=== PATIENT | male | born 1980 | race Caucasian/White ===

== ENCOUNTER 2016-09-29 01:09 | Inpatient (IN) | payer OTHER ==
[~2016-09-29] VITALS: Ht 167.6 cm; Wt 83.9 kg
--- NOTE | ~2016-09-29 | S ---
[facility] [place] [address] SURGICAL PATH RPT PROCEDURE Name: JOSIE BRITT Room #: 533-P ADM IN M.R.#: [id number] Admission: 09/29/16 Date of : 78 Discharge: Report #: [id number] Path Case #: [id number] PATHOLOGY REPORT COLLECTION DATE: 10/01/2016 RECEIVED DATE: 10/01/2016 SUBMITTING PHYS: Dr. Tyree Mckeon OTHER PHYS: Dr. Flip Charlton SPECIMEN(S) RECEIVED: A.Incarcerated hernia contents * * * * * * * * * * * * FINAL DIAGNOSIS: Incarcerated hernia contents: - Mature adipose tissue along with congested vessels. (IUV:csd; d/t: 10/03/2016) PATHOLOGIST: Yana Fletcher M.D. REPORT ELECTRONICALLY SIGNED BY: Yana Fletcher M.D. DATE/TIME: 10/03/2016 16:08 * * * * * * * * * * * * GROSS PATHOLOGY: Received in formalin labeled "Josie Britt, incarcerated hernia contents," is a piece of fibroadipose tissue measuring 7.7 x 5.8 x 2.9 cm with attached mesh measuring 6.0 x 5.7 x 0.1 cm. No nodules or lesions are identified. Block Tester tissue is submitted in cassette A1. A gross photograph is taken. (CAA; 10/02/2016) CLINICAL HISTORY: Ventral hernia INITIAL CPT CODE(S): A; 57458 Professional services performed by [facility] at [facility] [address] [place] [address] Technical services performed by [facility] at [address] [place] [id number]. [facility] [address] [place] [address] SURGICAL PATH RPT PROCEDURE Name: JOSIE BRITT Room #: 533-P ADM IN M.R.#: [id number] Admission: 09/29/16 Date of : 78 Discharge: Report #: [id number] Path Case #: [id number] [facility] [id number] [address] PHONE: [phone] DIRECTOR: Andrew Rodgers M.D. * * * END OF REPORT * * *
--- NOTE | ~2016-09-29 | O ---
[facility] [place] [address] OPERATIVE REPORT Name: JOSIE BRITT Room #: 533-P ADM IN M.R.#: [id number] Admission: 09/29/16 Attend Phys: Zoltan Castelan MD Discharge: Date of : 78 Report #: [id number] THIS REPORT FOR: //name// CC: MELISSA physician/PCP Zoltan Castelan DATE OF SERVICE: 10/01/2016 PREOPERATIVE DIAGNOSES: 1. Incarcerated recurrent incisional ventral hernia. 2. Suspected intra-abdominal adhesions. POSTOPERATIVE DIAGNOSES: 1. Incarcerated recurrent incisional ventral hernia with indwelling mesh. 2. Dense intraabdominal adhesions. PROCEDURES PERFORMED: 1. Laparoscopic repair of an incarcerated recurrent incisional ventral hernia with mesh, including explantation of prior mesh. 2. Laparoscopic lysis of adhesions. SURGEON: Tyree Mckeon MD [employer] DIRECTOR: JULIANNE Greenwood ANESTHESIA: General endotracheal anesthesia. ESTIMATED BLOOD LOSS: Minimal (less than 5 mL). COMPLICATIONS: None appreciated. SPECIMENS: Incarcerated hernia contents complexed with prior displaced synthetic mesh patch to pathology. INDICATIONS: The patient is a 36-year-old male who has had intermittent abdominal pain that began several months ago that has worsened in the periumbilical region. The patient initially had a laparoscopic cholecystectomy and appendectomy and had what sounds like a trocar site incisional hernia that underwent open repair with Ventralex mesh 2 years ago while in [place]. The patient has had worsening pain around the umbilicus since that time, which has really worsened over the past several months and also has had intermittent blood in his stools. The patient did undergo prior endoscopic evaluation with EGD and colonoscopy 6 months ago at [facility] with findings of a polyp as well as some sort of lesion in his stomach for which he has been on Protonix. The patient underwent repeat endoscopic evaluation yesterday with findings of a normal upper endoscopy and small nonbleeding internal hemorrhoids as well as an [facility] [address] [place] [address] OPERATIVE REPORT Name: SHEMAR BRITTIC Room #: 533-P [facility] IN ..#: [id number] Admission: 09/29/16 Attend Phys: Zoltan Castelan MD Discharge: Date of : 78 Report #: [id number] anal fissure. On CT scan, the patient has shown evidence of incarcerated omentum contained within a recurrent incisional ventral hernia around the prior placed synthetic mesh patch and as he has recurrence of this incarcerated hernia with periumbilical pain, indication was for operative intervention today. PROCEDURE: After explaining the risks, benefits and alternatives of the procedure with the patient in detail in the preoperative holding area and obtaining written consent, the patient was brought to the operating room and placed supine on the operating room table. After conducting a thorough timeout procedure, verifying correct patient and procedure, the patient was given general endotracheal anesthesia. Once adequate anesthesia was obtained, his SCDs were hooked up to pneumatic compression device and he was given a preoperative dose of antibiotics in line with the SCIP protocol. The patient's abdomen was then prepped and draped in standard surgical sterile fashion. 5 mL of 0.5% Marcaine with epinephrine were used to anesthetize the skin in the left upper quadrant and midclavicular line in an immediate subcostal location. A #15 bladed scalpel was used to create a small skin miller at this location. A 5-mm Visiport was placed over 0 degree 5-mm laparoscope and was introduced through this incision site. Once intraabdominal placement was verified visually, the obturator for the trocar and laparoscope were both removed and the abdomen was insufflated to 15 mmHg using carbon dioxide gas. The laparoscope was changed to a 5-mm 30-degree laparoscope, which was reintroduced through this trocar. The entire abdomen was evaluated to ensure no injury upon entry. We immediately identified significant intra-abdominal adhesions mainly of omentum plastered to the periumbilical region. We were unable to visualize the prior placed synthetic mesh at this location due to the adhesions in the area; however, the left lateral abdomen was completely devoid of adhesions. I was therefore able to place 2 additional trocars in the left flank. A 12-mm port was placed lateral to the umbilicus at the anterior axillary line and an additional 5-mm port was placed in left lower quadrant. Both additional trocars were placed under direct vision after anesthetizing the skin at each location with 5 mL of 0.5% Marcaine with epinephrine, and I had created appropriately sized skin nicks using #15 bladed scalpel. Laparoscope was placed through the 12-mm trocar and I proceeded to use the Harmonic scalpel to skeletonize the posterior aspect of the anterior abdominal wall. This lysis of adhesions was performed first by transecting the omentum that was plastered to the mesh, which allowed the rest of the omentum to fall back into the abdomen posteriorly. There was no evidence of bowel tethered to the abdominal wall in any way as we stayed well away from bowel at all times. I then proceeded to take down all preperitoneal fat as well as the prior placed synthetic mesh patch, which had come loose from the abdominal wall in the most cephalad aspect of the mesh, which allowed the omentum to get reincarcerated within the recurrent incisional hernia. Once I had taken down all the preperitoneal fat as well as freed the prior placed synthetic mesh, this specimen was placed in the right upper quadrant for future retrieval. Photodocumentation of the adhesions, the displaced prior placed synthetic mesh as well as the [facility] [address] [place] [address] OPERATIVE REPORT Name: JOSIE BRITT Room #: 533-P ADM IN M.R.#: [id number] Admission: 09/29/16 Attend Phys: Zoltan Castelan MD Discharge: Date of : 78 Report #: [id number] skeletonization of the abdominal wall showing the recurrent incisional hernia were taken and provided to the patient and the permanent medical record. The hernia defect itself measured 1.5 x 1.5 cm in dimension. In order to attain at least 4-cm overlap in all directions circumferentially, I selected a piece of Ventralight ST mesh with the echo positioning system that measured 11.4 cm round. The mesh was rolled up, placed in the abdomen through the 12-mm port under direct vision by placing the laparoscope in the left upper quadrant trocar. Once this was placed intraabdominally, the laparoscope was placed back through the 12-mm trocar and the Inocencio-Richard suture passer device was driven directly through the anterior abdominal wall where the end eyelet of the balloon insufflation tubing was grasped, pulled up through the abdominal wall, cut off and passed off the field. The syringe insufflator was then attached to the balloon insufflation tubing and the echo positioning system was fully inflated. This was then held up to hold the entire mesh in close approximation with the posterior aspect of the anterior abdominal wall and was clamped with hemostat externally at the skin level to hold it in position. I then decreased the intraabdominal insufflation pressure down to 8 mmHg and I utilized the secure strap absorbable fixation device to circumferentially fix the mesh into place at 1 cm intervals around the periphery of the mesh. I then elevated the hemostat externally and use suture scissors to cut the balloon tubing, which allowed the echo positioning system to fully desufflate. Laparoscope was placed back in the left upper quadrant trocar and the scaffolding was removed under direct vision to ensure it was removed in full. This was then passed off the field and the laparoscope was placed back through the 12-mm port. I then utilized the secure strap absorbable fixation device to place numerous tacks throughout the innermost portion of the mesh creating a second circumferential cantwell around the hernia defect to hold the entire mesh in close approximation with the posterior aspect of the anterior abdominal wall throughout. Photodocumentation of the mesh repair was taken and provided to the patient and the permanent medical record as well. Hemostasis was assured. Laparoscope was placed back in the left upper quadrant trocar and the resection specimen of incarcerated omentum complexed with the displaced prior synthetic mesh was removed via the 12 mm fascial incision under direct vision. I then closed the 12-mm fascial incision using 0 PDS suture on a Inocencio-Richard needle under direct vision and this was tied down under direct vision to ensure I did not catch a loop of bowel or omentum in my suture repair. One final evaluation of the intra-abdominal domain showed no further evidence of pathology and the mesh appeared to be lying in a smooth fashion against the abdominal wall with no rippling and the edges were not peeled up in any way to allow for recurrence. The abdomen was fully desufflated. All ports removed under direct vision. A 4-0 Monocryl was used in a standard subcuticular fashion for all skin incisions and Dermabond glue was applied to all skin wounds. At the end of the procedure, all instrument, needle and sponge counts were correct. The patient tolerated the procedure without incident, was awakened in the operating room [address] [address] OPERATIVE REPORT Name: JOSIE BRITT Room #: 533-P ADM IN M.R.#: [id number] Admission: 09/29/16 Attend Phys: Zoltan Castelan MD Discharge: Date of : 78 Report #: [id number] and transitioned to the recovery room in stable condition with no apparent complications. <ELECTRONICALLY SIGNED> By: Tyree Mckeon MD, FACS 10/02/16 0924 1651 1751 Tyree Mckeon MD, FACS /nt
--- NOTE | ~2016-09-29 | D ---
[facility] [place] [address] DISCHARGE SUMMARY Name: JOSIE BRITT Room #: 533-P [facility] IN M.R.#: [id number] Admission: 09/29/16 Attend Phys: Zoltan Castelan MD Discharge: 10/03/16 Date of : 78 Report #: [id number] THIS REPORT FOR: //name// CC: MELISSA physician/PCP Zoltan Castelan DATE OF SERVICE: 10/03/2016 DATE OF ADMISSION: 09/29/2016 DATE OF DISCHARGE: 10/03/2016 DISCHARGE DIAGNOSES: 1. Laparoscopic repair of the incarcerated recurrent incisional ventral hernia with mesh. 2. Chronic pain, on gabapentin. 3. Recent history of hematochezia. 4. Restless legs syndrome. 5. Anxiety, depression. 6. Asthma. 7. Gastroesophageal reflux disease. 8. Morbid obesity. CONSULTS: GI and Surgery. PROCEDURES: He had an incarcerated recurrent incisional ventral hernia repair done on October 01. HOSPITAL COURSE: The patient is a 36-year-old male with a history of prior hernia repair with mesh, presented to the ER secondary to abdominal pain. Please see details of the admission dictated by ____ on September 29. CT of the abdomen was negative for any acute findings. Surgery was consulted and he underwent an incisional hernia repair on 09/30/2016. Postoperatively, I assumed his care and at that time, he was complaining of ongoing pain despite being able to take oral intake. His discharge was held. On postop day 2, he had a ____, indicates he had a lot of pain with that. Also while urinating, he was noticed to have a lot of grimacing and discomfort, although he indicated that was normal for him. He had a KUB done that was negative. Surgery cleared him for discharge. I spoke with Dr. Mckeon, who feels that patient has a low tolerance for pain, but he is not having any postsurgical issues. The patient has requested Dilaudid for pain control. When the Dilaudid was discontinued, the patient received Percocet 7.5, but on discharge he requested ____. I recommended that he stick with the 7.5 to avoid any postoperative constipation and complications from that. Nurses report no other problems. The patient was agreeable to going home and comfortable with it. [address] [address] DISCHARGE SUMMARY Name: JOSIE BRITT Room #: 533-P [facility] IN .R.#: [id number] Admission: 09/29/16 Attend Phys: Zoltan Castelan MD Discharge: 10/03/16 Date of : 78 Report #: [id number] DISCHARGE DISPOSITION: To home. DISCHARGE PHYSICAL EXAMINATION: VITAL SIGNS: Temperature 97, pulse 79, blood pressure 117/78, O2 saturation 97% on room air. GENERAL: He is awake, alert, answering questions appropriately, no acute respiratory distress. HEENT: Normocephalic, atraumatic. Pupils are equal. NECK: Supple. CARDIOVASCULAR: Regular rate and rhythm. No murmurs. LUNGS: Clear to auscultation bilaterally. No cough or wheeze. ABDOMEN: Soft. Mild distention. He indicates he has got tenderness above his pelvis and on his left side. EXTREMITIES: No edema. NEUROLOGIC: Nonfocal. DISCHARGE MEDICATIONS: Percocet p.r.n., gabapentin 600 at bedtime, Lexapro 10 daily, buspirone 10 b.i.d., and Valium p.r.n. DIET: Regular diet. ACTIVITY: Per surgery. Wound care per surgery. Follow up with surgery in 2 weeks and to seek immediate medical attention if symptoms worsen or recur or if he has any other significant medical concerns. Discharge planning took 32 minutes By: 1659 33 Mary Stafford MD /nt
--- NOTE | ~2016-09-29 | P ---
[facility] [place] [address] PROCEDURE REPORT Name: JOSIE BRITT Room #: 533-P ADM IN M.R.#: [id number] Admission: 09/29/16 Attend Phys: Zoltan Castelan MD Discharge: Date of : 78 Report #: [id number] THIS REPORT FOR: //name// CC: MELISSA physician/PCP Zoltan Castelan MD DATE OF SERVICE: 09/30/2016 DATE OF SERVICE: 09/30/2016. PROCEDURE PERFORMED: Flexible sigmoidoscopy. HISTORY OF PRESENT ILLNESS: The patient is a 36-year-old male who complains of periumbilical abdominal pain and bright red blood per rectum, reportedly had a colonoscopy approximately 6 months ago, in which polyps were removed. CT scan of the abdomen and pelvis here shows a small fat-containing umbilical hernia. The patient has had a previous mesh procedure, apparently Dr. Pires and Dr. Pérez are following. Plan is for flexible sigmoidoscopy. DESCRIPTION OF PROCEDURE: The risks and benefits of the procedure were explained to the patient. Those risks including but not limited to bleeding, perforation, and the risk of sedation. He understood these risks and gave informed consent. Sedation was given using propofol per anesthesia. Next, a digital rectal exam was initially performed, which was normal. Next, using a standard Fujinon upper endoscope, the scope was placed in the patient's anus and advanced under direct vision to the ascending colon. The overall prep was good. The ascending, transverse, descending and sigmoid colon were all normal. Rectal mucosa was normal. On retroflexion, small nonbleeding internal hemorrhoids were noted. Close examination of the anal canal showed an anal fissure. There was no active bleeding. The scope was then withdrawn, and the procedure terminated. The patient tolerated the procedure well. IMPRESSION: 1. Anal fissure, likely source of recent bright red blood per rectum. 2. Small nonbleeding internal hemorrhoids. 3. Otherwise, normal flexible sigmoidoscopy. RECOMMENDATIONS: 1. High-fiber diet. 2. Analpram b.i.d. per rectum for the next 2 weeks and then on a p.r.n. basis. 3. Consider surgical repair of umbilical hernia as this may be the etiology of this periumbilical abdominal pain. [address] [address] PROCEDURE REPORT Name: JOSIE BRITT Room #: 533-P [facility] IN M.R.#: [id number] Admission: 09/29/16 Attend Phys: Zoltan Castelan MD Discharge: Date of : 78 Report #: [id number] Thank you for allowing me to participate in his care. <ELECTRONICALLY SIGNED> By: Oleg Francisco MD 10/01/16 1341 1250 52 Oleg Francisco MD /nt
--- NOTE | ~2016-09-29 | HC ---
[facility] [place] [address] CONSULTATION Name: JOSIE BRITT Room #: 533-P ADM IN M.R.#: [id number] Admission: 09/29/16 Attend Phys: Zoltan Castelan MD Discharge: Date of : 78 Report #: [id number] THIS REPORT FOR: //name// CC: MELISSA physician/PCP Zoltan Castelan MD DATE OF SERVICE: 09/29/2016 HISTORY OF PRESENT ILLNESS: The patient is a 36-year-old male with abdominal pain and GI bleed, presented with increasing periumbilical abdominal pain which began several months ago. He apparently had a mesh repair of a periumbilical hernia. He states this was in 04/2015. He has had intermittent blood in his stools and actually underwent an EGD and colonoscopy approximately 6 months ago apparently at [facility]. I do not have a copy of these results; however, he states that polyps were removed on the colonoscopy and he had a lesion in his stomach and has been on Protonix. He was also given Carafate, but he was unable to take this medication due to the size of the pills. He does complain of increased abdominal pain after eating. He has already had a previous cholecystectomy and appendectomy. His weight has been fairly stable. He does report maroon-colored stools and showed me a picture of a recent stool that appeared to be more bright red blood per rectum. He denies any dysphagia. He denies any significant heartburn symptoms at this time. PAST MEDICAL HISTORY: Asthma, previous hernia mesh repair of umbilical hernia, appendectomy, anxiety, depression, restless-like syndrome, previous cholecystectomy. MEDICATIONS ON ADMISSION: Neurontin, Lexapro, BuSpar, Valium, and reportedly on Protonix. ALLERGIES: No known drug allergies. SOCIAL HISTORY: He denies any alcohol use. He does smoke cigarettes. FAMILY HISTORY: Negative for colon cancer or inflammatory bowel disease. REVIEW OF SYSTEMS: As per HPI. PHYSICAL EXAMINATION: VITAL SIGNS: Temperature is 97.4, pulse 65, blood pressure 124/86, respiratory rate is 18. GENERAL: He is alert and oriented x 3 in no acute distress. HEENT: Sclerae nonicteric. Oropharynx clear. NECK: Supple, without lymphadenopathy. CARDIOVASCULAR: Regular rate and rhythm. [facility] [address] [place] [address] CONSULTATION Name: JOSIE BRITT Room #: 3[facility] IN M.R.#: [id number] Admission: 09/29/16 Attend Phys: Zoltan Castelan MD Discharge: Date of : 78 Report #: [id number] CHEST: Clear to auscultation bilaterally. ABDOMEN: Soft. He is mildly tender to palpation, especially in the periumbilical region. Normoactive bowel sounds. Nondistended. EXTREMITIES: No cyanosis, clubbing, or edema. LABORATORY DATA: Sodium 138, potassium 3.6, chloride 101, bicarbonate 25, BUN 8, creatinine 0.8, AST 34, lipase 122, total bilirubin 0.3, alkaline phosphatase 119, ALT is 91, total protein 8.0, albumin 3.7. WBC is 11.1, hemoglobin 14.3, MCV 86.2, platelet count is 301. CT scan of the abdomen and pelvis on 09/29/2016, a small fat-continuing umbilical hernia is noted. There is minimal scarring within this region. Otherwise, no acute intra-abdominal process is identified. ASSESSMENT AND PLAN: Abdominal pain, gastrointestinal bleed, etiology is unclear at this time. CT was essentially negative other than a small umbilical hernia, which had previously been repaired approximately 2 years ago. The patient reportedly has had an EGD and colonoscopy within the last 6 months. He also had a lesion on upper endoscopy per his report. He apparently has been taking PPI therapy and denies any significant NSAID use. I would recommend repeating upper endoscopy tomorrow as well as a flexible sigmoidoscopy as the patient just had a colonoscopy within the last 6 months. We will continue to monitor hemoglobin, continue PPI therapy, which he is already on 40 mg of Protonix b.i.d. We will make further recommendations after endoscopy. Thank you for allowing me to participate in his care. <ELECTRONICALLY SIGNED> By: Oleg Francisco MD 09/30/16 1132 1241 15 Oleg Francisco MD /nt
--- NOTE | ~2016-09-29 | P ---
[facility] [place] [address] PROCEDURE REPORT Name: JOSIE BRITT Room #: 533-P ADM IN M.R.#: [id number] Admission: 09/29/16 Attend Phys: Zoltan Castelan MD Discharge: Date of : 78 Report #: [id number] THIS REPORT FOR: //name// CC: MELISSA physician/PCP Zoltan Castelan MD DATE OF SERVICE: 09/30/2016 PROCEDURE PERFORMED: Upper endoscopy. HISTORY OF PRESENT ILLNESS: The patient is a 36-year-old male with a history of intermittent bright red blood per rectum and periumbilical abdominal pain. Apparently had an EGD and colonoscopy approximately 6 months ago. Polyps were removed at that time from a colonoscopy. He was told he had lesion of the stomach. He has been on Protonix. He was also given Carafate but was unable to take this medication due to the size of the pills. He has had a previous cholecystectomy and appendectomy. Plan was for EGD and flexible sigmoidoscopy today. DESCRIPTION OF PROCEDURE: The risks and benefits of the procedure were explained to the patient, those risks including but not limited to bleeding, perforation, the risk of sedation. He understood these risks and gave informed consent. Sedation was given using propofol per anesthesia. Next, using a standard Geneva Marsinon upper endoscope, the scope was placed in the patient's mouth and advanced under direct vision through the esophagus, stomach and into the second portion of the duodenum. The esophagus was normal throughout. The GE junction was normal. Overall, the gastric mucosa was normal. The pylorus was normal and patent. The duodenal bulb, first and second portion were all normal. The scope was then withdrawn and the procedure terminated. The patient tolerated the procedure well. IMPRESSION: Normal upper endoscopy. RECOMMENDATIONS: We will proceed with flexible sigmoidoscopy today. Thank you for allowing me to participate in his care. <ELECTRONICALLY SIGNED> By: Oleg Francisco MD 10/01/16 1341 1248 16 Oleg Francisco MD /nt
[2016-09-29 01:31] VITALS: BP 141/106
[2016-09-29] MEDS ORDERED: LEXAPRO 10 MG T10 M2 PO (01:38)
[2016-09-29] MEDS ORDERED: VALIUM5 MG (01:38)
[2016-09-29] MEDS ORDERED: NEURONTIN600 MG PO (01:38)
[2016-09-29] MEDS ORDERED: BUSPIRONE HCL10 MG PO (01:38)
[2016-09-29 02:05] LABS: ABSOLUTE NEUTROPHILS 6.7 thou/uL (1.4-8.2); BASOPHILS 0.8 % (0.0-2.0); EOSINOPHILS 1.8 % (0.0-3.0); HEMATOCRIT 42.2 % (42.0-52.0); HEMOGLOBIN 14.3 gm/dL (14.0-18.0); LYMPHOCYTES 30.8 % (24.0-44.0); MANUAL DIFF NO; MCH 29.2 pg (26.0-34.0); MCHC 33.8 g/dL (28.0-37.0); MCV 86.2 fL (80.0-100.0); MONOCYTES 6.6 % (1.0-8.0); PLATELET COUNT 301 thou/uL (150-400); RBC 4.89 mil/uL (4.50-6.00); RDW 13.8 % (10.5-14.5); WBC 11.1 thou/uL (4.0-11.0)
[2016-09-29 02:15] LABS: CALCIUM 8.6 mg/dL (8.5-10.1); CREATININE 0.8 mg/dL (0.7-1.3); POTASSIUM 3.6 mmol/L (3.5-5.1)
[2016-09-29 02:20] LABS: ALBUMIN 3.7 g/dL (3.4-5.0); TOTAL BILIRUBIN 0.3 mg/dL (<0.1-1.0)
[2016-09-29 04:25] VITALS: BP 114/90
[2016-09-29 07:10] VITALS: BP 124/86
[2016-09-29 09:58] LABS: URINE BILIRUBIN NEGATIVE (Negative); URINE BLOOD 3+ (Negative); URINE COLOR YELLOW; URINE GLUCOSE-RANDOM* NEGATIVE (Negative); URINE KETONES NEGATIVE (Negative); URINE LEUKOCYTES-REFLEX NEGATIVE (Negative); URINE PROTEIN (DIPSTICK) NEGATIVE (Negative); URINE UROBILINOGEN 0.2 E.U./dl (0.2-1.0)
[2016-09-29 10:08] LABS: CASTS None Seen /LPF (None Seen); CRYSTALS None Seen /LPF (None Seen); SQUAMOUS 0-3 Few /LPF (0-3); URINE RBC 3-10 Few /HPF (0-2)
[2016-09-29 10:09] LABS: URINE WBC-REFLEX None Seen /HPF (0-5)
[2016-09-29 15:35] VITALS: BP 119/89
[2016-09-29 19:25] VITALS: BP 114/63
[2016-09-30 03:25] VITALS: BP 114/68
[2016-09-30 06:57] LABS: ABSOLUTE NEUTROPHILS 3.6 thou/uL (1.4-8.2); BASOPHILS 0.7 % (0.0-2.0); EOSINOPHILS 3.1 % (0.0-3.0); HEMATOCRIT 37.5 % (42.0-52.0); HEMOGLOBIN 12.5 gm/dL (14.0-18.0); LYMPHOCYTES 31.9 % (24.0-44.0); MCH 28.9 pg (26.0-34.0); MCHC 33.3 g/dL (28.0-37.0); MCV 86.8 fL (80.0-100.0); MONOCYTES 6.1 % (1.0-8.0); PLATELET COUNT 249 thou/uL (150-400); POLYS 58.2 % (36.0-66.0); RBC 4.32 mil/uL (4.50-6.00); RDW 14.5 % (10.5-14.5); WBC 6.2 thou/uL (4.0-11.0)
[2016-09-30 07:01] LABS: MANUAL DIFF NO
[2016-09-30 07:42] VITALS: BP 123/71
[2016-09-30 07:53] LABS: CALCIUM 7.9 mg/dL (8.5-10.1); CREATININE 0.6 mg/dL (0.7-1.3); MAGNESIUM 2.1 mg/dL (1.8-2.4); POTASSIUM 3.6 mmol/L (3.5-5.1); TOTAL BILIRUBIN 0.5 mg/dL (<0.1-1.0); TOTAL PROTEIN 6.6 g/dL (6.4-8.2)
[2016-09-30 16:11] VITALS: BP 108/54
[2016-09-30 20:00] VITALS: BP 116/73
[2016-10-01 04:00] VITALS: BP 124/74
[2016-10-01 08:53] VITALS: BP 127/80
[2016-10-01 17:25] VITALS: BP 140/94
[2016-10-01 17:30] VITALS: BP 141/87
[2016-10-01 18:00] VITALS: BP 118/51
[2016-10-01 20:00] VITALS: BP 126/81
[2016-10-02 00:01] VITALS: BP 126/81
[2016-10-02 04:00] VITALS: BP 116/64
[2016-10-02 07:04] VITALS: BP 118/78
[2016-10-02 16:21] VITALS: BP 119/81
[2016-10-02 20:00] VITALS: BP 127/85
[2016-10-03 03:30] VITALS: BP 142/92
[2016-10-03 07:16] VITALS: BP 131/81
[2016-10-03 16:31] VITALS: BP 117/78
[2016-10-03] MEDS ORDERED: OXYCODONE-APAP1 EAC6 PO (16:39)
[2016-10-03 16:46] VITALS: BP 117/78
[2016-10-04] MEDS ORDERED: ZANAFLEX4 MG PO (18:29)
== END 2016-10-03 20:36 | disposition home or self-care (01) | DRG 354 ==
LOC: ER 01:09 → EROBS 03:59 → 5S 03:59
PROVIDERS: Emergency Medicine; Nurse Practitioner
PROC: 0DJD8ZZ Inspection of Lower Intestinal Tract, Via Natural or Artificial Opening Endoscopic (ICD-10-PCS; 2016-09-30)
PROC: 0DJ08ZZ Inspection of Upper Intestinal Tract, Via Natural or Artificial Opening Endoscopic (ICD-10-PCS; 2016-09-30)
PROC: 0WUF4JZ Supplement Abdominal Wall with Synthetic Substitute, Percutaneous Endoscopic Approach (ICD-10-PCS; principal; 2016-10-01)
DX: K43.0 Incisional hernia with obstruction, without gangrene (principal); K92.1 Melena; G25.81 Restless legs syndrome; K21.9 Gastro-esophageal reflux disease without esophagitis; F32.9 Major depressive disorder, single episode, unspecified; G89.29 Other chronic pain; K64.8 Other hemorrhoids; F17.210 Nicotine dependence, cigarettes, uncomplicated; J45.909 Unspecified asthma, uncomplicated; E66.9 Obesity, unspecified; K60.2 Anal fissure, unspecified; F41.9 Anxiety disorder, unspecified; E66.01 Morbid (severe) obesity due to excess calories; Z68.29 Body mass index [BMI] 29.0-29.9, adult; Z79.899 Other long term (current) drug therapy; Z90.49 Acquired absence of other specified parts of digestive tract; Z80.9 Family history of malignant neoplasm, unspecified
CPT/HCPCS: 10086; 50010; 50101; 50249; 50386; 50455; 50555; 50558; 50962; 50980; 50984; 52265; 53307; 54022; 54118; 56462; 56525; 56526; 62110; 62900; 70005

== ENCOUNTER 2016-10-04 18:22 | Emergency (ER) | payer OTHER ==
[~2016-10-04] VITALS: Ht 167.6 cm; Wt 81.7 kg
[~2016-10-04 18:22] MED LIST: BUSPIRONE HCL10 MG PO; LEXAPRO 10 MG T10 M2 PO; NEURONTIN600 MG PO; OXYCODONE-APAP1 EAC6 PO; VALIUM5 MG
[2016-10-04] MEDS ORDERED: ZANAFLEX4 MG PO (18:29)
== END 2016-10-04 19:52 | disposition home or self-care (01) ==
LOC: ER 18:22
DX: G89.18 Other acute postprocedural pain (principal); J98.11 Atelectasis; K59.00 Constipation, unspecified; Z76.5 Malingerer [conscious simulation]; J45.909 Unspecified asthma, uncomplicated; Z90.49 Acquired absence of other specified parts of digestive tract; F41.9 Anxiety disorder, unspecified; F32.9 Major depressive disorder, single episode, unspecified; Z98.890 Other specified postprocedural states; F17.210 Nicotine dependence, cigarettes, uncomplicated

== ENCOUNTER 2016-10-14 17:01 | Emergency (ER) | payer OTHER ==
[~2016-10-14] VITALS: Ht 167.6 cm; Wt 81.7 kg
[~2016-10-14 17:01] MED LIST changes: +ZANAFLEX4 MG PO
[2016-10-14] MEDS ORDERED: NAPROSYN500 MG PO (18:34)
[2016-10-14 18:45] LABS: URINE BILIRUBIN NEGATIVE (Negative); URINE BLOOD NEGATIVE (Negative); URINE COLOR YELLOW; URINE GLUCOSE-RANDOM* NEGATIVE (Negative); URINE KETONES NEGATIVE (Negative); URINE LEUKOCYTES-REFLEX NEGATIVE (Negative); URINE PROTEIN (DIPSTICK) NEGATIVE (Negative); URINE SPECIFIC GRAVITY <= 1.005 (1.003-1.035); URINE UROBILINOGEN 0.2 E.U./dl (0.2-1.0)
[2016-10-14 18:51] LABS: ABSOLUTE NEUTROPHILS 7.3 thou/uL (1.4-8.2); BASOPHILS 0.8 % (0.0-2.0); EOSINOPHILS 2.1 % (0.0-3.0); HEMATOCRIT 39.5 % (42.0-52.0); HEMOGLOBIN 13.5 gm/dL (14.0-18.0); LYMPHOCYTES 23.6 % (24.0-44.0); MCH 29.4 pg (26.0-34.0); MCHC 34.2 g/dL (28.0-37.0); MCV 85.8 fL (80.0-100.0); MONOCYTES 4.7 % (1.0-8.0); PLATELET COUNT 355 thou/uL (150-400); POLYS 68.8 % (36.0-66.0); RBC 4.61 mil/uL (4.50-6.00); RDW 13.9 % (10.5-14.5); WBC 10.7 thou/uL (4.0-11.0)
[2016-10-14 19:00] LABS: MANUAL DIFF NO
[2016-10-14 19:02] LABS: CALCIUM 8.9 mg/dL (8.5-10.1); CREATININE 0.8 mg/dL (0.7-1.3); POTASSIUM 3.5 mmol/L (3.5-5.1)
[2016-10-14 19:07] LABS: ALBUMIN 3.8 g/dL (3.4-5.0); TOTAL BILIRUBIN 0.2 mg/dL (<0.1-1.0); TOTAL PROTEIN 7.7 g/dL (6.4-8.2)
[2016-10-14] MEDS ORDERED: PERCOCET 5-3251 EACH PO (19:40)
== END 2016-10-14 20:32 | disposition home or self-care (01) ==
LOC: ER 17:01
PROVIDERS: Emergency Medicine
DX: G89.29 Other chronic pain (principal); R10.84 Generalized abdominal pain; J45.909 Unspecified asthma, uncomplicated; F41.9 Anxiety disorder, unspecified; F17.210 Nicotine dependence, cigarettes, uncomplicated; F32.9 Major depressive disorder, single episode, unspecified; G25.81 Restless legs syndrome; Z76.0 Encounter for issue of repeat prescription; Z90.89 Acquired absence of other organs; Z90.49 Acquired absence of other specified parts of digestive tract

== ENCOUNTER 2016-10-28 15:55 | Emergency (ER) | payer OTHER ==
[~2016-10-28] VITALS: Ht 167.6 cm; Wt 81.7 kg
[~2016-10-28 15:55] MED LIST changes: +NAPROSYN500 MG PO; +PERCOCET 5-3251 EACH PO
[2016-10-28 17:59] LABS: URINE BILIRUBIN NEGATIVE (Negative); URINE BLOOD NEGATIVE (Negative); URINE COLOR YELLOW; URINE GLUCOSE-RANDOM* NEGATIVE (Negative); URINE KETONES NEGATIVE (Negative); URINE NITRITE NEGATIVE (Negative); URINE PROTEIN (DIPSTICK) NEGATIVE (Negative); URINE SPECIFIC GRAVITY <= 1.005 (1.003-1.035); URINE UROBILINOGEN 0.2 E.U./dl (0.2-1.0)
[2016-10-28 18:00] LABS: ABSOLUTE NEUTROPHILS 6.2 thou/uL (1.4-8.2); BASOPHILS 0.9 % (0.0-2.0); EOSINOPHILS 4.2 % (0.0-3.0); HEMATOCRIT 36.7 % (42.0-52.0); HEMOGLOBIN 12.5 gm/dL (14.0-18.0); LYMPHOCYTES 24.1 % (24.0-44.0); MCH 29.7 pg (26.0-34.0); MCHC 34.2 g/dL (28.0-37.0); MCV 86.8 fL (80.0-100.0); PLATELET COUNT 321 thou/uL (150-400); POLYS 63.8 % (36.0-66.0); RBC 4.23 mil/uL (4.50-6.00); RDW 13.9 % (10.5-14.5); WBC 9.7 thou/uL (4.0-11.0)
[2016-10-28 18:08] LABS: CALCIUM 9.1 mg/dL (8.5-10.1); CREATININE 0.7 mg/dL (0.7-1.3); MANUAL DIFF NO; POTASSIUM 4.5 mmol/L (3.5-5.1)
[2016-10-28 18:15] LABS: ALBUMIN 3.8 g/dL (3.4-5.0); TOTAL BILIRUBIN 0.3 mg/dL (<0.1-1.0); TOTAL PROTEIN 7.4 g/dL (6.4-8.2)
[2016-10-28] MEDS ORDERED: NORCO 5-325 TA1 EACH PO (18:28)
[2016-10-28] MEDS ORDERED: MIRALAX17 GM PO (18:29)
== END 2016-10-28 19:10 | disposition home or self-care (01) ==
LOC: ER 15:55
PROVIDERS: Physician Assistant
DX: K92.2 Gastrointestinal hemorrhage, unspecified (principal); K64.9 Unspecified hemorrhoids; J45.909 Unspecified asthma, uncomplicated; F32.9 Major depressive disorder, single episode, unspecified; F17.210 Nicotine dependence, cigarettes, uncomplicated; F41.9 Anxiety disorder, unspecified; G25.81 Restless legs syndrome; Z90.49 Acquired absence of other specified parts of digestive tract; Z90.89 Acquired absence of other organs